=== PATIENT | female | born 1995 | race African-American/Black ===

== ENCOUNTER 2017-12-28 09:21 | Emergency (ER) | payer OTHER ==
[~2017-12-28] VITALS: Ht 180.3 cm; Wt 100.7 kg
[~2017-12-28 09:21] MED LIST: AMOXICILLIN500 M1 PO; DIFLUCAN200 MG PO; ERYTHROMYCIN E3.5 G1 OPHTHALMIC; FLAGYL500 MG PO; IBUPROFEN 600600 M1 PO; KEFLEX500 MG PO; KLOR-CON 1010 MEQ PO; MACROBID 100 M100 M1 PO; NOHOMEMEDICATIONS; PROMETHEGAN25 MG RC; ZOFRAN 4 MG ORAL4 MG PO; ZOFRAN ODT4 MG DISSOLVE; ZOFRAN ODT4 MG PO
[2017-12-28] MEDS ORDERED: PRENATAL (09:31)
[2017-12-28 10:36] LABS: URINE BILIRUBIN NEGATIVE (Negative); URINE BLOOD NEGATIVE (Negative); URINE CLARITY HAZY; URINE COLOR YELLOW; URINE GLUCOSE-RANDOM* NEGATIVE (Negative); URINE KETONES NEGATIVE (Negative); URINE LEUKOCYTES-REFLEX 3+ (Negative); URINE NITRITE-REFLEX NEGATIVE (Negative); URINE PROTEIN (DIPSTICK) NEGATIVE (Negative); URINE UROBILINOGEN 0.2 E.U./dl (0.2-1.0)
[2017-12-28 10:59] LABS: CASTS None Seen /LPF (None Seen); CRYSTALS None Seen /LPF (None Seen); SQUAMOUS 4-10 Moderate /LPF (0-3)
[2017-12-28 11:00] LABS: URINE RBC None Seen /HPF (0-2); URINE WBC-REFLEX 6-15 Few /HPF (0-5)
[2017-12-28] MEDS ORDERED: KEFLEX500 M1 PO (11:20)
[2017-12-28 11:37] VITALS: BP 123/78
== END 2017-12-28 11:39 | disposition home or self-care (01) ==
LOC: ER 09:21
PROVIDERS: Physician Assistant
DX: O98.312 Other infections with a predominantly sexual mode of transmission complicating pregnancy, second trimester (principal); O23.42 Unspecified infection of urinary tract in pregnancy, second trimester; A59.01 Trichomonal vulvovaginitis; A64 Unspecified sexually transmitted disease; Z87.891 Personal history of nicotine dependence; Z98.890 Other specified postprocedural states; Z3A.21 21 weeks gestation of pregnancy